=== PATIENT | female | born 1995 | race Native Hawaiian/Other Pacific Islander ===

== ENCOUNTER → 2022-12-14 11:32 | Outpatient (CLI) | payer OTHER, SELFPAY ==
[2022-12-14 14:31] LABS: Urine N gonorrhoeae NOT DETECTED
[2022-12-14 14:36] LABS: Urine Chlamydia NOT DETECTED
[2022-12-15 13:42] LABS: HSV 2 IGG AB < 0.91 index (0.00-0.90); HSV1IGG < 0.91 index (0.00-0.90)
[2022-12-15 16:18] LABS: Hepatitis B Surface Antigen NEGATIVE s/c (NEGATIVE)
[2022-12-15 16:33] LABS: HIV 1 & 2 Ab/Ag 4th Gen Combo NEGATIVE (NEGATIVE); Hep C Virus Ab w/Reflex Quant NEGATIVE s/c (NEGATIVE)
[2022-12-16 08:44] LABS: RPR Screen Non Reactive (Non Reactive)
== END ==
PROVIDERS: PCP Family Medicine; Referring Provider Nurse Practitioner Family; Visit Provider Nurse Practitioner Family
DX: Z11.3 Encounter for screening for infections with a predominantly sexual mode of transmission (principal)
CPT/HCPCS: 36415; 86592; 86695; 86696; 86803; 87210; 87340; 87389; 87491; 87591

== ENCOUNTER → 2023-02-20 07:47 | Outpatient (CLI) | payer OTHER, SELFPAY | PROVIDERS: PCP Family Medicine; Visit Provider Nurse Practitioner Family | DX: R31.9 Hematuria, unspecified (principal); N89.8 Other specified noninflammatory disorders of vagina | CPT/HCPCS: 87077; 87086; 87186; 87210 ==

== ENCOUNTER → 2023-02-20 08:11 | Outpatient (CLI) | payer OTHER, SELFPAY ==
[2023-02-20 08:22] LABS: Pregnancy Test Urine Negative (Negative)
[2023-02-20 16:57] LABS: HIV 1 & 2 Ab/Ag 4th Gen Combo NEGATIVE (NEGATIVE); Hep C Virus Ab w/Reflex Quant NEGATIVE s/c (NEGATIVE)
[2023-02-21 02:57] LABS: HSV 2 IGG AB < 0.91 index (0.00-0.90); HSV1IGG < 0.91 index (0.00-0.90)
[2023-02-21 08:54] LABS: RPR Screen Non Reactive (Non Reactive)
== END ==
PROVIDERS: PCP Family Medicine; Referring Provider Nurse Practitioner Family; Visit Provider Nurse Practitioner Family
DX: N89.8 Other specified noninflammatory disorders of vagina (principal); R31.9 Hematuria, unspecified; Z72.51 High risk heterosexual behavior
CPT/HCPCS: 36415; 81025; 86592; 86695; 86696; 86803; 87086; 87210; 87389

== ENCOUNTER 2023-03-23 18:25 | Emergency (ER) | payer OTHER, SELFPAY ==
[2023-03-23 18:37] VITALS: BP 141/85; PULSE 75; RESP 18; TEMP 36.6; O2SAT 99; BMI 30.2
--- NOTE | 2023-03-23 18:47 | ED_ITS ---
HPI - Neck Pain/Injury General Chief Complaint: Neck Pain/Injury Stated Complaint: Thinks blood clot near jaw Time Seen by Provider: 03/23/23 18:32 Mode of arrival: Ambulatory History of Present Illness HPI Narrative: 27-year-old female with history of non-Hodgkin's lymphoma and prior upper extremity and internal jugular DVTs presents with a chief complaint of a few days of perceived swelling under the angle of her left lower jaw for the past few days. She denies any fever or chills. She has no chest pain or shortness of breath. She denies any difficulty swallowing. She is had no upper extremity pain, swelling or redness. She is no facial swelling, no dental pain, no fever or chills Related Data Home Medications Medication Instructions Recorded Confirmed ascorbic acid (vitamin C) PO 03/16/23 03/16/23 ashwagandha extract PO 03/16/23 03/16/23 cholecalciferol (vitamin D3) PO 03/16/23 03/16/23 melatonin PO 03/16/23 03/16/23 multivitamin with iron PO 03/16/23 03/16/23 Previous Rx's Medication Instructions Recorded lorazepam 0.5 mg tablet 0.25 - 0.5 mg PO BID PRN anxiety 03/16/23 #30 tabs Allergies Allergy/AdvReac Type Severity Reaction Status Date / Time amoxicillin Allergy Mild Hives Verified 03/16/23 08:39 vancomycin Allergy Mild Nausea Verified 03/16/23 08:39 Review of Systems Review of Systems Narrative: GENERAL: Denies chills, fatigue, malaise, fever, sweats. HEENT: See HPI RESPIRATORY: Denies dyspnea, cough, wheezing, hemoptysis, sputum. CARDIOVASCULAR: Denies chest pain, palpitations, orthopnea, edema, GASTROINTESTINAL: Denies nausea, vomiting, abdominal pain, diarrhea, constipatio n, melena. : Denies dysuria, frequency, incontinence, hematuria, urinary retention. MUSCULOSKELETAL: denies weakness, joint pain, or bony pain SKIN: Denies rash, skin lesions, or other NEUROLOGIC: Denies weakness, headache, numbness, change in speech, confusion, seizures, incoordination. PSYCHIATRIC: No concerning psychosocial issues. 12 point review of systems is negative except for those stated above Patient History Medical History DIANNE (generalized anxiety disorder) Non-Hodgkin lymphoma Social History Smoking Status: Never smoker Smoking Status: Never smoker alcohol intake frequency: a few times a week Substance Use Type: does not use Exam Narrative Exam Narrative: GENERAL: [27] year old patient appears stated age. Well-developed patient, in mild distress. HEAD: Atraumatic. Normocephalic. EYES: Pupils equal round and reactive. Extraocular motions intact. No scleral icterus. No injection or drainage. ENT: Nose without bleeding, purulent drainage. Throat without erythema, tonsillar hypertrophy or exudate. Airway patent. No intraoral swelling or abnormality, no obvious dental abscess, no palpable mass under angle of jaw, no tender lymphadenopathy NECK: Trachea midline. Non tender CARDIOVASCULAR: Regular rate and rhythm without murmurs, gallops, or rubs. RESPIRATORY: Clear to auscultation. Breath sounds equal bilaterally. No wheezes, rales, or rhonchi. GASTROINTESTINAL: Abdomen soft, non-tender, nondistended. EXTREMITIES: No edema or joint tenderness. BACK: Nontender without deformity or crepitance. No flank tenderness. NEURO: AOx3. SKIN: No rash or erythema of visible areas Initial Vital Signs Initial Vital Signs: Vital Signs Temperature 97.8 F 03/23/23 18:37 Pulse Rate 75 03/23/23 18:37 Respiratory Rate 18 03/23/23 18:37 Blood Pressure 141/85 H 03/23/23 18:37 Pulse Oximetry 99 03/23/23 18:37 Oxygen Delivery Method Room Air 03/23/23 18:37 Course Orders Ordered: ED Orders 03/23/23 18:48 US periph venous up extrem lt Stat Vital Signs Vital signs: Vital Signs - 8 hr 03/23/23 20:25 03/23/23 23:12 Pulse Rate 74 76 Respiratory Rate 16 Blood Pressure 124/84 100/59 L Pulse Oximetry 99 100 Oxygen Delivery Method Room Air MDM - Neck Pain/Injury MDM Narrative Medical decision making narrative: [27] year old patient presents with pain under left-sided jaw and concern for recurrence of clot Multiple etiologies for patient's symptoms considered including, but not limited to: [DVT versus sialadenitis versus dental infection versus lymphadenopathy versus other] Prior Charts reviewed in our EMR Primary Historian: patient Imaging reviewed: Upper extremity ultrasound negative, no clot Patient's history and physical exam are reassuring. Multiple diagnoses considered as noted above. No evidence of DVT, no obvious swelling or redness, imaging is reassuring. No obvious dental infection, no palpable lymphadenopathy. Possibly early sialadenitis. No indication for specific or immediate intervention currently, patient encouraged to follow with her primary care and return precautions include increasing pain, swelling, redness, difficulty swallowing or breathing or other concerning symptoms Findings and discharge diagnosis discussed with patient/family followed by verbalization of understanding Return precautions discussed with patient/family whom verbalize understanding of diagnosis and plan Discharge Plan Departure Patient Disposition: Home Clinical Impression: Mandible pain Activity Restrictions/Additional Instructions: *You have been diagnosed with [left lateral mandibular pain. As we discussed you have reassuring history and physical exam, the ultrasound shows no significant abnormality] *What to do: *Please continue to take your regular medications as directed. *Please follow up with your primary care provider in 2-3 days, call for an appointment. Let them know you were seen in the Emergency Department and that we ask that you be seen in follow up. We will electronically transmit a record of today's note if your PCP is in our system *Return to Emergency Department if you should have any new, worsening or concerning symptoms, such as [fever greater than 101 F, shaking chills, worsening pain, persistent vomiting or other bothersome symptoms] Prescriptions: No Action lorazepam 0.5 mg tablet 0.25 - 0.5 mg PO BID PRN (Reason: anxiety) Qty: 30 0RF melatonin PO ascorbic acid (vitamin C) PO cholecalciferol (vitamin D3) PO ashwagandha extract PO multivitamin with iron PO Referrals: Marco A Downs DO [Primary Care Provider] - Stand Alone Forms: Patient Portal/API
--- NOTE | 2023-03-23 18:48 | DI.US.S_ITS ---
PROCEDURE: US PERIPH VENOUS UP EXTREM LT INDICATIONS: LEFT NECK SWELLING TECHNIQUE: Real-time imaging, as well as color and pulse Doppler interrogation, was performed of the left upper extremity deep veins from the inferior neck to the antecubital fossa. COMPARISON: None. FINDINGS: The internal jugular vein, visualized portions of the subclavian vein, axillary, and brachial veins are free of intraluminal thrombus. Where physically possible, the veins are normally compressible. Color and pulse Doppler demonstrate normal intraluminal flow, with expected phasicity and pulsatility. Additional scanning of the cephalic and basilic veins of the superficial system demonstrates normal compressibility, without thrombus. IMPRESSION: No findings of upper extremity deep venous thrombosis can be seen. Dictated by: Salas Rodriguez M.D. on 03/23/2023 at 18:24 Approved by: Salas Rodriguez M.D. on 03/23/2023 at 18:24
[2023-03-23 20:25] VITALS: BP 124/84; PULSE 74; O2SAT 99
[2023-03-23 23:12] VITALS: BP 100/59; PULSE 76; RESP 16; O2SAT 100
== END 2023-03-23 23:45 | disposition home or self-care (01) ==
PROVIDERS: Emergency Provider Emergency Medicine; PCP Family Medicine
DX: R68.84 Jaw pain (principal)
CPT/HCPCS: 93971; 99281; 99283

== ENCOUNTER → 2023-08-17 16:53 | Outpatient (CLI) | payer OTHER, SELFPAY ==
--- NOTE | 2023-08-17 16:55 | DI.RAD.S_ITS ---
PROCEDURE: XR CHEST 2V INDICATIONS: cough TECHNIQUE: 2 views of the chest were acquired. COMPARISON: None. FINDINGS: Surgical changes and devices: Stent projecting over the right lung apex.. Lungs and pleura: Lungs are clear. No pleural effusions or pneumothorax. Mediastinum: Mediastinal contours are normal. Heart size is normal. Bones and chest wall: No suspicious bony abnormalities. Soft tissues appear unremarkable. IMPRESSION: No acute cardiopulmonary abnormality is seen. Dictated by: Tio Zhao M.D. on 08/18/2023 at 8:41 Approved by: Tio Zhao M.D. on 08/18/2023 at 8:42
[2023-08-17 17:44] LABS: Add Manual Diff / Slide Review NO; Basophils Absolute Auto 100 /uL (0-100); Basophils Percent Auto 1.2 % (0-2); Eosinophils Absolute Auto 300 /uL (0-450); Eosinophils Percent Auto 7.8 % (2-4); Hematocrit 36.3 % (36-46); Hemoglobin 12.5 g/dL (12.0-16.0); Lymphocytes Absolute Auto 700 /uL (1100-4500); Lymphocytes Percent Auto 15.9 % (25-40); Mean Corpuscular HGB Conc 34.3 % (30-36); Mean Corpuscular Hemoglobin 32.3 PG (26-34); Monocytes Absolute Auto 400 /uL (0-900); Monocytes Percent Auto 8.7 % (3-14); Neutrophils Absolute Auto 2800 /uL (1500-7000); Neutrophils Percent Auto 66.4 % (50-75); Platelet Count 279 X10^3/uL (150-400); Red Blood Cell Count 3.86 X10^6/uL (4.0-5.2); Red Cell Distribution Width 12.4 % (11.6-14.8); White Blood Cell Count 4.2 X10^3/uL (4.5-11.0)
[2023-08-17 19:01] LABS: Hepatitis B Surface Antigen NEGATIVE s/c (NEGATIVE)
[2023-08-17 19:13] LABS: Urine Chlamydia NOT DETECTED; Urine N gonorrhoeae NOT DETECTED
== END ==
LOC: LAB 16:54
PROVIDERS: PCP Family Medicine; Referring Provider Nurse Practitioner Family; Visit Provider Nurse Practitioner Family
DX: Z11.3 Encounter for screening for infections with a predominantly sexual mode of transmission (principal); R05.9 Cough, unspecified; Z72.51 High risk heterosexual behavior
CPT/HCPCS: 36415; 71046; 85025; 87340; 87491; 87591

== ENCOUNTER 2023-09-18 07:01 | Emergency (ER) | payer OTHER, SELFPAY ==
[2023-09-18 07:12] VITALS: BP 133/75; PULSE 61; RESP 18; TEMP 36.6; O2SAT 100; BMI 26.6
--- NOTE | 2023-09-18 07:42 | ED_ITS ---
HPI - Abdominal Pain General Chief Complaint: Abdominal Pain Stated Complaint: bloating, constipation pain Time Seen by Provider: 09/18/23 07:29 Source: patient Mode of arrival: Ambulatory History of Present Illness HPI narrative: This is a 28-year-old female with history of B-cell lymphoma, partial remission with prior chemo and radiation to the chest, prior DVTs no longer anticoagulated. Patient presents with complaint of feeling bloated and having abdominal pain intermittently over the past several weeks. Patient states she has had pain only 2 major episodes that have resolved. She states she feels bloated and full. She thought she might be constipated she has had bowel movements but small amounts when it happens, she is tried senna and another [id number] stool softener and has started to have some diarrhea. She states stools have been on and off diarrhea with mucousy threads since chemotherapy. She denies any recent fevers. No chest pain or shortness of breath. No nausea or vomiting. She states no issues with dysuria urgency or frequency thought her urine looked darker. She does not get regular periods she does have IUD in place. No swelling in extremities. Patient states she has had a port and had stents for DVTs and clean out in her right neck. Patient states no tobacco, occasional alcohol, no recreational drugs. She is still following with Oncology regularly, has been told she is partially in remission and has a PET scan ordered for the end of the month. Related Data Home Medications Medication Instructions Recorded Confirmed ascorbic acid (vitamin C) PO 03/16/23 08/17/23 ashwagandha extract PO 03/16/23 08/17/23 cholecalciferol (vitamin D3) PO 03/16/23 08/17/23 melatonin PO 03/16/23 08/17/23 multivitamin with iron PO 03/16/23 08/17/23 biotin 10,000 mcg chewable tablet mcg PO 04/17/23 08/17/23 (Hair, Skin and Nails (biotin)) Previous Rx's Medication Instructions Recorded lorazepam 0.5 mg tablet 0.25 - 0.5 mg (0.5 - 1 x 0.5 mg) 03/16/23 PO BID PRN anxiety #30 tabs Allergies Allergy/AdvReac Type Severity Reaction Status Date / Time amoxicillin Allergy Mild Hives Verified 09/18/23 07:17 vancomycin Allergy Mild Nausea Verified 09/18/23 07:17 Review of Systems Review of Systems ROS Unobtainable: All systems reviewed & are unremarkable except as noted in HPI and below Patient History Medical History Depression (~2016) Anxiety (~2016) Ovarian cyst (~2021) Chlamydia (~2013) DIANNE (generalized anxiety disorder) Non-Hodgkin lymphoma (~2021) Surgical History Anesthesia History of removal of Port-a-Cath History of heart artery stent History of bone marrow biopsy History of breast surgery Family History Mother Hypertension Grandmother Alzheimer's disease Social History Smoking Status: Never smoker Smoking Status: Never smoker alcohol intake frequency: a few times a week Substance Use Type: does not use Exam Narrative Exam Narrative: GENERAL: Alert and oriented x three, well-appearing female in mild distress. HEENT: Head normocephalic, atraumatic, EOMI, pupils reactive, face symmetric, moist mucous membranes NECK: Supple, full range of motion CARDIOVASCULAR: Regular rate and rhythm without murmurs, rubs or gallops. RESPIRATORY: Breath sounds equal bilaterally, no wheezes rales or rhonchi. ABDOMEN: Soft, nontender. Slightly distended. Normoactive bowel sounds all 4 quadrants. No guarding or rebound, rigidity, no mass : No CVA tenderness EXTREMITIES: Normal range of motion, no clubbing or edema. Neurovascularly intact NEUROLOGICAL: Cranial nerves II through XII grossly intact. Moving all extremities SKIN: Warm, dry, no petechiae, no rashes or lesions. Initial Vital Signs Initial Vital Signs: Vital Signs Temperature 97.8 F 09/18/23 07:12 Pulse Rate 61 09/18/23 07:12 Respiratory Rate 18 09/18/23 07:12 Blood Pressure 133/75 09/18/23 07:12 Pulse Oximetry 100 09/18/23 07:12 Oxygen Delivery Method Room Air 09/18/23 07:12 Course Orders Ordered: ED Orders 09/18/23 07:54 CT abdomen pelvis w con Stat 09/18/23 08:05 Complete Blood Count AUTO DIFF Stat Comprehensive Metabolic Panel Stat Lipase Stat Discontinued Medications Sodium Chloride (Normal Saline 0.9%) 1,000 mls @ 1,000 mls/hr IV BOLUS ONE Stop: 09/18/23 08:53 Last Admin: 09/18/23 08:21 Dose: 1,000 mls/hr Documented By: INOCENTE Vital Signs Vital signs: Vital Signs - 8 hr 09/18/23 07:12 09/18/23 09:00 Temperature 97.8 F Pulse Rate 61 77 Respiratory Rate 18 20 Blood Pressure 133/75 131/71 Pulse Oximetry 100 100 Oxygen Delivery Method Room Air Room Air MDM - Abdominal Pain Lab Data 09/18/23 08:05 09/18/23 08:05 Labs: Lab Results 09/18/23 Range/Units 08:05 WBC 2.9 L (4.5-11.0) X10^3/uL RBC 3.66 L (4.0-5.2) X10^6/uL Hgb 12.2 (12.0-16.0) g/dL Hct 35.0 L (36-46) % MCV 95.4 (80-100) fL MCH 33.3 (26-34) PG MCHC 34.9 (30-36) % RDW 13.1 (11.6-14.8) % Plt Count 232 (150-400) X10^3/uL Neut % (Auto) 60.0 (50-75) % Lymph % (Auto) 18.4 L (25-40) % Emmet % (Auto) 12.2 (3-14) % Eos % (Auto) 7.5 H (2-4) % Baso % (Auto) 1.9 (0-2) % Neut # (Auto) 1800 (3772-4337) /uL Lymph # (Auto) 500 L (4840-1078) /uL Emmet # (Auto) 400 (0-900) /uL Eos # (Auto) 200 (0-450) /uL Baso # (Auto) 100 (0-100) /uL Sodium 139 (137-145) mmol/L Potassium 4.1 (3.4-5.1) mmol/L Chloride 107 (98-107) mmol/L Carbon Dioxide 29 (22-32) mmol/L BUN 17 (7-17) mg/dL Creatinine 0.69 (0.52-1.04) mg/dL Estimated GFR > 60 (>60) mL/min BUN/Creatinine Ratio 24.6 H (6-22) Glucose 89 (70-100) mg/dL Calcium 9.2 (8.4-10.2) mg/dL Total Bilirubin 1.0 (0.2-1.3) mg/dL AST 24 (14-36) IU/L ALT 16 (<35) IU/L Alkaline Phosphatase 52 (38-126) U/L Total Protein 7.9 (6.3-8.2) g/dL Albumin 4.6 (3.5-5.0) g/dL Globulin 3.3 (1.7-4.1) g/dL Albumin/Globulin Ratio 1.4 (1.0-2.8) Lipase 82 (23-300) U/L Point of care testing: Point of Care Testing Test Results Negative Urine Dip Bedside Urine Glucose Negative Bedside Urine Bilirubin - Negative Bedside Urine Ketone - Negative Urine Specific Marshall 1.015 Bedside Urine Occult Blood - Negative Bedside Urine pH 6.0 Bedside Urine Protein - Negative Bedside Urine Urobilinogen - Negative Bedside Urine Nitrite - Negative Bedside Urine Leukocytes - Negative Esterase Imaging Data CT scan - abdomen/pelvis: Radiologist's Impression: Close Abdomen/Pelvis CT (Signed) Remington Louise - 09/18/23 Chest X-Ray (Signed) Tio Zhao - 08/17/23 Peripheral Vascular Ultrasound (Signed) Salas Rodriguez - 03/23/23 [place] [address] CT Scan Report Signed Patient: Courtney Ugalde MR#: [id number] : 1995 Acct:[id number] Age/Sex: 28 / F Date of Service: 09/18/23 Loc: ED Accession Number: [id number] Procedure: CT abdomen pelvis w con Ordering Provider: Patricia Pires D.O. PROCEDURE: CT ABDOMEN PELVIS W CON INDICATIONS: bloating, abd pain intermittent, hx B cell lymph rad/chemo TECHNIQUE: After the administration of intravenous contrast, axial sections acquired from the lung bases to the pubic symphysis. Coronal and sagittal reformats were performed. For radiation dose reduction, the following was used: automated exposure control, adjustment of mA and/or kV according to patient size. COMPARISON: None. FINDINGS: Image quality: Diagnostic. Lower Chest: No significant findings. ABDOMEN: Liver: No solid mass. Gallbladder: No radiopaque gallstones or wall thickening. Biliary ducts: No biliary dilation. Pancreas: No ductal dilation. Spleen: Size is within normal limits. Adrenal Glands: No adrenal nodules. Kidneys and Ureters: No hydronephrosis. No solid mass. No complex renal cystic lesion which requires follow up. Stomach and Bowel: Normal colonic caliber, without significant wall thickening. Peritoneum: No abnormal intraperitoneal fluid. Physiologic fluid in the pelvis. No free air. Ventral Wall: No significant ventral hernia. Abdominal Nodes: No retroperitoneal or mesenteric adenopathy by size criteria. Vessels: Aorta and inferior vena cava are normal in size. PELVIS: Pelvic Organs: IUD. Bladder: No bladder wall thickening, accounting for underdistention. Pelvic Nodes: No enlarged lymph nodes. Miscellaneous: No inguinal hernias are seen. Bones: No aggressive osseous abnormality. Disc bulges at L4-L5 and L5-S1. IMPRESSION: 1. No acute abdominal process. 2. No lymphadenopathy noted in the abdomen and pelvis. 3. IUD. Dictated by: Remington Louise M.D. on 09/18/2023 at 8:24 Approved by: Remington Louise M.D. on 09/18/2023 at 8:26 MDM Narrative Medical decision making narrative: 28-year-old female with complaint of intermittent abdominal pain, bloating and concern for intra-abdominal process. Patient has a history of B-cell lymphoma, had radiation to her chest chemotherapy, has had prior DVTs remotely. Patient states pains resolved today. She has not really had any urinary symptoms. Does not get periods regularly does have an IUD in place. Urine is negative for , dip is negative for infection. White count is 2.9 was 4.2 in August, hemoglobin is 12.2 appears stable to prior in August, platelets are 232. Electrolytes appropriate sodium of 139 potassium 4 1 chloride 107 CO2 of 29 BUN 17 creatinine 0.69 with negative LFTs and protein and globulin. Discussed with patient risks versus benefits of CT imaging. Patient does have risk factors with her prior history after discussion patient elects for CT abdomen pelvis-no masses, normal colon caliber without any wall thickening, no adenopathy, IUD present. Patient to follow up with Oncology, she has follow-up later this month. Reviewed findings from today, return precautions. Patient has follow up with Oncology later this month asked her to share her lab findings with her white count as well. Discharge Plan Departure Patient Disposition: Home Clinical Impression: Bloating Activity Restrictions/Additional Instructions: Follow-up with your oncology team for recheck. Your white blood cell count today is 2.9. Your CT showed your IUD but no other changes. If you feel constipated and not having bowel movements you can continue with Dulcolax and/or senna. Make sure you are drinking plenty of fluids while taking these medications. It is sometimes helpful to eat high-fiber foods as well. Please return for fevers, new abdominal pain, persistent vomiting, black or bloody stools, new urinary symptoms, if you are not having bowel movements and not passing gas or flatus or other new or concerning changes. Prescriptions: No Action Hair, Skin and Nails (biotin) 10,000 mcg tablet,chewable PO lorazepam 0.5 mg tablet 0.25 - 0.5 mg PO BID PRN (Reason: anxiety) Qty: 30 0RF melatonin PO ascorbic acid (vitamin C) PO cholecalciferol (vitamin D3) PO ashwagandha extract PO multivitamin with iron PO Referrals: Marco A Downs DO [Primary Care Provider] - Stand Alone Forms: Patient Portal/API
--- NOTE | 2023-09-18 07:54 | DI.CT.S_ITS ---
PROCEDURE: CT ABDOMEN PELVIS W CON INDICATIONS: bloating, abd pain intermittent, hx B cell lymph rad/chemo TECHNIQUE: After the administration of intravenous contrast, axial sections acquired from the lung bases to the pubic symphysis. Coronal and sagittal reformats were performed. For radiation dose reduction, the following was used: automated exposure control, adjustment of mA and/or kV according to patient size. COMPARISON: None. FINDINGS: Image quality: Diagnostic. Lower Chest: No significant findings. ABDOMEN: Liver: No solid mass. Gallbladder: No radiopaque gallstones or wall thickening. Biliary ducts: No biliary dilation. Pancreas: No ductal dilation. Spleen: Size is within normal limits. Adrenal Glands: No adrenal nodules. Kidneys and Ureters: No hydronephrosis. No solid mass. No complex renal cystic lesion which requires follow up. Stomach and Bowel: Normal colonic caliber, without significant wall thickening. Peritoneum: No abnormal intraperitoneal fluid. Physiologic fluid in the pelvis. No free air. Ventral Wall: No significant ventral hernia. Abdominal Nodes: No retroperitoneal or mesenteric adenopathy by size criteria. Vessels: Aorta and inferior vena cava are normal in size. PELVIS: Pelvic Organs: IUD. Bladder: No bladder wall thickening, accounting for underdistention. Pelvic Nodes: No enlarged lymph nodes. Miscellaneous: No inguinal hernias are seen. Bones: No aggressive osseous abnormality. Disc bulges at L4-L5 and L5-S1. IMPRESSION: 1. No acute abdominal process. 2. No lymphadenopathy noted in the abdomen and pelvis. 3. IUD. Dictated by: Remington Louise M.D. on 09/18/2023 at 8:24 Approved by: Remington Louise M.D. on 09/18/2023 at 8:26
[2023-09-18 08:16] LABS: Add Manual Diff / Slide Review NO; Basophils Absolute Auto 100 /uL (0-100); Basophils Percent Auto 1.9 % (0-2); Eosinophils Absolute Auto 200 /uL (0-450); Eosinophils Percent Auto 7.5 % (2-4); Hemoglobin 12.2 g/dL (12.0-16.0); Lymphocytes Absolute Auto 500 /uL (1100-4500); Lymphocytes Percent Auto 18.4 % (25-40); Mean Corpuscular HGB Conc 34.9 % (30-36); Mean Corpuscular Hemoglobin 33.3 PG (26-34); Mean Corpuscular Volume 95.4 fL (80-100); Monocytes Absolute Auto 400 /uL (0-900); Monocytes Percent Auto 12.2 % (3-14); Neutrophils Absolute Auto 1800 /uL (1500-7000); Platelet Count 232 X10^3/uL (150-400); Red Blood Cell Count 3.66 X10^6/uL (4.0-5.2); Red Cell Distribution Width 13.1 % (11.6-14.8); White Blood Cell Count 2.9 X10^3/uL (4.5-11.0)
[2023-09-18] MEDS: SODIUM CHLORIDE 0.9% 1,000 ML 1000 ML IV (08:21)
[2023-09-18 08:24] LABS: Alanine Aminotransferase 16 IU/L (<35); Albumin 4.6 g/dL (3.5-5.0); Albumin Globulin Ratio 1.4 (1.0-2.8); Alkaline Phosphatase 52 U/L (38-126); Aspartate Aminotransferase 24 IU/L (14-36); BUN Creatinine Ratio 24.6 (6-22); Blood Urea Nitrogen 17 mg/dL (7-17); Calcium 9.2 mg/dL (8.4-10.2); Carbon Dioxide 29 mmol/L (22-32); Chloride 107 mmol/L (98-107); Estimated Glomerular Filt Rate > 60 mL/min (>60); Globulin 3.3 g/dL (1.7-4.1); Glucose 89 mg/dL (70-100); HEMOLYSIS < 15 (0-50); Lipase 82 U/L (23-300); Potassium 4.1 mmol/L (3.4-5.1); Sodium 139 mmol/L (137-145); Total Protein 7.9 g/dL (6.3-8.2)
[2023-09-18 09:00] VITALS: BP 131/71; PULSE 77; RESP 20; O2SAT 100
== END 2023-09-18 09:01 | disposition home or self-care (01) ==
PROVIDERS: Emergency Provider Emergency Medicine; PCP Family Medicine
DX: R14.0 Abdominal distension (gaseous) (principal); R10.9 Unspecified abdominal pain; C85.90 Non-Hodgkin lymphoma, unspecified, unspecified site; R79.89 Other specified abnormal findings of blood chemistry
CPT/HCPCS: 36415; 74177; 80053; 81003; 81025; 83690; 85025; 99284; Q9967

== ENCOUNTER → 2023-10-25 09:43 | Outpatient (CLI) | payer OTHER, SELFPAY ==
--- NOTE | 2023-10-25 09:43 | DI.US.S_ITS ---
PROCEDURE: US PELVIC COMPLETE INDICATIONS: R/O pelvic inflammatory disease. TECHNIQUE: Real-time scanning was performed of the pelvic organs, with image documentation. Additional endovaginal scanning was necessary due to incomplete visualization of the adnexal and endometrial structures by transabdominal scanning. COMPARISON: [facility], CT, CT ABDOMEN PELVIS W CON, 09/18/2023, 7:06. FINDINGS: Uterus: Uterus is anteverted and normal in size at 6.4 x 4.4 x 2.4 cm. The myometrium is homogeneous. The endometrium measures 4 mm combined thickness. There is an IUD in expected position. Ovaries: The right ovary measures 3.2 x 3.3 x 2.0 cm, with a calculated ovarian volume of 11.0 cc. The left ovary is not visualized. Less than 12 follicles can be seen in the right ovary. A 1.8 cm dominant follicle is seen in the right ovary. No adnexal masses are seen. No dilated fallopian tubes. Other: No pathologic free abdominal or pelvic fluid. IMPRESSION: 1. IUD in uterus. 2. Right ovary is grossly normal. Left ovary is not identified. 3. No dilated fallopian tubes or free fluid in pelvis. We strive to produce accurate, complete, and clear reports of imaging services. To assist us in improving patient care, this report was composed using standard report templates and voice recognition software. Therefore, it may contain abnormal punctuation, insertions and/or omissions. Occasional wrong-word or sound-alike substitutions may occur. Though we review the report and make efforts to correct it, we do recommend that the report be read carefully in proper context to recognize any text inaccuracies. Dictated by: Chaparrita Bailey M.D. on 10/25/2023 at 12:09 Approved by: Chaparrita Bailey M.D. on 10/25/2023 at 12:12
== END ==
LOC: US 09:43
PROVIDERS: PCP Family Medicine; Referring Provider Specialist; Visit Provider Specialist
DX: C85.92 Non-Hodgkin lymphoma, unspecified, intrathoracic lymph nodes (principal); Z97.5 Presence of (intrauterine) contraceptive device
CPT/HCPCS: 76830; 76856

== ENCOUNTER → 2024-01-09 22:56 | Outpatient (ROUT) | payer OTHER, SELFPAY ==
[2024-01-10 00:27] LABS: Urine N gonorrhoeae NOT DETECTED
[2024-01-10 00:47] LABS: Urine Chlamydia NOT DETECTED
== END ==
PROVIDERS: PCP Family Medicine; Visit Provider Physician Assistant
DX: Z20.2 Contact with and (suspected) exposure to infections with a predominantly sexual mode of transmission (principal)
CPT/HCPCS: 87491; 87591

== ENCOUNTER → 2024-03-11 11:56 | Outpatient (CLI) | payer OTHER, SELFPAY ==
--- NOTE | 2024-03-11 11:58 | DI.RAD.S_ITS ---
PROCEDURE: XR ANKLE RT MIN 3V INDICATIONS: Right ankle pain TECHNIQUE: 3 views of the ankle were acquired. COMPARISON: None. FINDINGS: Bones: No fractures or dislocations. Ankle mortise is normally aligned. No suspicious bony lesions. Soft tissues: No tibiotalar joint effusion. Soft tissue swelling overlying the lateral malleolus. Achilles tendon appears normal. IMPRESSION: Soft tissue swelling overlying the lateral malleolus without acute osseous abnormality. Dictated by: Minh Johnson M.D. on 03/12/2024 at 10:08 Approved by: Minh Johnson M.D. on 03/12/2024 at 10:09
== END ==
PROVIDERS: PCP Family Medicine; Referring Provider Nurse Practitioner Family; Visit Provider Nurse Practitioner Family
DX: S96.911A Strain of unspecified muscle and tendon at ankle and foot level, right foot, initial encounter (principal); R60.0 Localized edema; X58.XXXA Exposure to other specified factors, initial encounter
CPT/HCPCS: 73610

== ENCOUNTER → 2024-04-24 10:13 | Outpatient (CLI) | payer OTHER, SELFPAY | PROVIDERS: PCP Family Medicine; Visit Provider Obstetrics & Gynecology | DX: Z20.2 Contact with and (suspected) exposure to infections with a predominantly sexual mode of transmission (principal) | CPT/HCPCS: 87491; 87563; 87591 ==

== ENCOUNTER → 2024-05-13 07:48 | Outpatient (CLI) | payer OTHER, SELFPAY ==
[2024-05-13 10:06] LABS: Prolactin 38.6 ng/mL (3.0-18.6)
[2024-05-13 10:07] LABS: Follicle Stimulating Hormone 5.86 mIU/mL; Free T4, Direct Thyroxine 0.98 ng/dL (0.78-2.19); Luteinizing Hormone 5.18 mIU/mL; Progesterone, Total 1.62 ng/mL
[2024-05-13 10:21] LABS: Thyroid Stimulating Hormone 3.73 uIU/mL (0.47-4.68)
[2024-05-13 10:22] LABS: Estradiol, Total 26.7 pg/mL
== END ==
LOC: LAB 07:49
PROVIDERS: Registered Nurse; PCP Family Medicine
DX: C83.32 Diffuse large B-cell lymphoma, intrathoracic lymph nodes (principal); Z31.9 Encounter for procreative management, unspecified
CPT/HCPCS: 36415; 82397; 82670; 83001; 83002; 84144; 84146; 84439; 84443

== ENCOUNTER → 2024-05-17 08:18 | Outpatient (CLI) | payer OTHER, SELFPAY ==
[2024-05-17 10:31] LABS: Urine N gonorrhoeae NOT DETECTED
[2024-05-17 10:33] LABS: Urine Chlamydia NOT DETECTED
== END ==
PROVIDERS: PCP Family Medicine; Referring Provider Nurse Practitioner Family; Visit Provider Nurse Practitioner Family
DX: A64 Unspecified sexually transmitted disease (principal); N94.9 Unspecified condition associated with female genital organs and menstrual cycle
CPT/HCPCS: 87491; 87591

== ENCOUNTER → 2024-05-17 13:52 | Outpatient (CLI) | payer OTHER, SELFPAY ==
[2024-05-17 22:15] LABS: Hepatitis B Surface Antigen NEGATIVE s/c (NEGATIVE)
[2024-05-17 23:13] LABS: HIV 1 & 2 Ab/Ag 4th Gen Combo NEGATIVE (NEGATIVE); Hep C Virus Ab w/Reflex Quant NEGATIVE s/c (NEGATIVE)
[2024-05-21 05:36] LABS: RPR Screen Non Reactive (Non Reactive)
== END ==
PROVIDERS: PCP Family Medicine; Referring Provider Nurse Practitioner Family; Visit Provider Nurse Practitioner Family
DX: N94.9 Unspecified condition associated with female genital organs and menstrual cycle (principal); A64 Unspecified sexually transmitted disease
CPT/HCPCS: 36415; 86592; 86695; 86696; 86803; 87340; 87389; 87491; 87591

== ENCOUNTER → 2024-06-04 15:53 | Outpatient (CLI) | payer OTHER, SELFPAY ==
--- NOTE | 2024-06-04 15:53 | DI.MG.S_ITS ---
BILATERAL DIGITAL SCREENING MAMMOGRAM 3D/2D WITH CAD: 06/04/2024 CLINICAL: Baseline exam. Routine screening. No prior exams were available for comparison. The breasts are heterogeneously dense, which may obscure small masses (category c / 51-75% glandular tissue). Current study was also evaluated with a Computer Aided Detection (CAD) system. No significant masses, calcifications, or other findings are seen in either breast. IMPRESSION: NEGATIVE There is no mammographic evidence of malignancy. A 1 year screening mammogram is recommended. Based on the Tyrer Cuzick model (a risk assessment model) the patient's lifetime risk is 16.8% and her 10 year risk is 0.5%. According to the ACR, ACS, and NCCN guidelines, an annual breast MRI exam along with mammogram is recommended if the patient's lifetime risk is 20% or greater. This exam was interpreted at Station ID: [id number]. NOTE: For mammograms, a report in lay terms will be sent to the patient. Approximately 15% of breast malignancies will not be visualized mammographically. In the management of a palpable breast mass, a negative mammogram must not discourage biopsy of a clinically suspicious lesion. Electronically Signed By: Analia Austin M.D., Ph.D. eb/penhemanth:06/05/2024 17:52:30 copy to: ADAM CHRISTENSEN copy to: John Turk MD, [facility] letter sent: Normal Exam ACR BI-RADS Category 1: Negative
== END ==
PROVIDERS: PCP Family Medicine; Referring Provider Obstetrics & Gynecology; Visit Provider Obstetrics & Gynecology
DX: Z12.31 Encounter for screening mammogram for malignant neoplasm of breast (principal); R92.333 Mammographic heterogeneous density, bilateral breasts
CPT/HCPCS: 77063; 77067

== ENCOUNTER → 2024-06-16 11:20 | Outpatient (CLI) | payer OTHER, SELFPAY ==
[2024-06-16 12:58] LABS: Urine N gonorrhoeae NOT DETECTED
[2024-06-16 12:59] LABS: Urine Chlamydia NOT DETECTED
== END ==
PROVIDERS: PCP Family Medicine; Visit Provider Registered Nurse
DX: Z11.3 Encounter for screening for infections with a predominantly sexual mode of transmission (principal); N89.8 Other specified noninflammatory disorders of vagina
CPT/HCPCS: 87086; 87210; 87491; 87591

== ENCOUNTER 2024-07-16 13:14 | Emergency (ER) | payer OTHER, SELFPAY ==
[2024-07-16 13:44] VITALS: BP 121/72; PULSE 72; RESP 18; TEMP 37.1; O2SAT 100; BMI 25.2
--- NOTE | 2024-07-16 14:29 | PC.NURSE ---
Patient reports starting monday patient has had significant n/v/d. Vomited twice on monday non since. Upwards of 20 episodes of diarrhea since last night. Denies urinary symptoms. Took pepto on monday reports dark colored diarrhea last night, now greenish yellow. Denies dizziness, shortness of breath. Patient has no history of gastric ulcer, use of blood thinners, no blood in emesis on monday.
[2024-07-16 14:38] LABS: Bacteria Urine None Seen; Culture Indicated Urine Cult Not Indicated; Mucus Urine 1+ (Negative); RBC Urine 1-5/HPF (0-5/HPF); Squamous Epithelial Cell Urine 0-1 /HPF (0-5/HPF); Urine Volume 10mL (spun); WBC Urine 1-5/HPF (0-5/HPF)
--- NOTE | 2024-07-16 15:26 | ED_ITS ---
HPI - Nausea/Vomiting/Diarrhea <Humble Castro PA-C - Last Filed: 07/16/24 16:21> General Chief complaint: Nausea/Vomiting/Diarrhea Stated complaint: poss Norovirus, dehydrated Time Seen by Provider: 07/16/24 14:11 Source: patient Mode of arrival: Ambulatory History of Present Illness HPI Narrative: 29-year-old female with past medical history non-Hodgkin's lymphoma in remission presents to the ED with 3 days of nausea, vomiting, diarrhea, abdominal cramping. Patient states that she was in [place], symptoms developed on her way back. Patient's symptoms started with fever, chills, vomiting. Patient states that she vomited only 2 times, and that her fever subsided after the 1st day. However, patient has had multiple episodes of diarrhea daily. Patient states that any foods that she eats causes her to have multiple bowel movements. Patient is able to keep down fluids orally. Denies chest pain, shortness of breath, dysuria, lightheadedness, dizziness, syncope. Related Data Home Medications Medication Instructions Recorded Confirmed ascorbic acid (vitamin C) PO 03/16/23 07/07/24 ashwagandha extract PO 03/16/23 07/07/24 cholecalciferol (vitamin D3) PO 03/16/23 07/07/24 melatonin PO 03/16/23 07/07/24 multivitamin with iron PO 03/16/23 07/07/24 biotin 10,000 mcg chewable tablet mcg PO 04/17/23 07/07/24 (Hair, Skin and Nails (biotin)) levonorgestrel 21 mcg/24 hr (up to intrauterine 04/24/24 07/07/24 8 years) 52 mg intrauterine device (Mirena) Previous Rx's Medication Instructions Recorded lorazepam 0.5 mg tablet 0.25 - 0.5 mg (0.5 - 1 x 0.5 mg) 03/15/24 PO BID PRN anxiety #30 tabs ondansetron 4 mg disintegrating 4 mg PO DAILY 30 days #20 tabs 06/05/24 tablet hyoscyamine sulfate 0.125 mg 0.25 mg (2 x 0.125 mg) PO TID-QID 07/16/24 tablet (Oscimin) PRN dyspepsia 5 days #20 tabs Allergies Allergy/AdvReac Type Severity Reaction Status Date / Time amoxicillin Allergy Mild Hives Verified 07/07/24 13:17 vancomycin Allergy Mild Nausea Verified 07/07/24 13:17 Review of Systems <Humble Castro PA-C - Last Filed: 07/16/24 16:21> Constitutional Constitutional: Reports chills, Denies fatigue, Reports fever(s), Denies frequent falls, Denies lethargy and Denies weakness Eyes Eyes: Denies change in vision, Denies eye discharge, Denies irritation and Denies loss of vision ENT Ears, Nose, Mouth, and Throat: Denies change in voice, Denies dizziness, Denies neck pain, Denies sore throat and Denies throat swelling Cardiovascular Cardiovascular: Denies chest pain, Denies irregular heart rhythm, Denies lightheadedness, Denies palpitations, Denies dyspnea, Denies dyspnea on exertion and Denies orthopnea Respiratory Respiratory: Denies cough, Denies dyspnea, Denies dyspnea on exertion and Denies wheezing Gastrointestinal Gastrointestinal: Denies abdominal pain, Denies change in bowel habits, Reports cramping, Reports diarrhea, Reports nausea and Reports vomiting Musculoskeletal Musculoskeletal: Denies neck pain and Denies numbness Integumentary/Breasts Skin/Breast: Denies pruritus, Denies erythema, Denies rash and Denies wounds Neurologic Neurologic: Denies behavioral changes, Denies confusion, Denies dizziness, Denie s frequent falls, Denies loss of vision, Denies numbness and Denies weakness Psychiatric Psychiatric: Denies anxiety, Denies behavioral changes, Denies confusion, Denies depression, Denies homicidal ideation and Denies suicidal ideation Endocrine Endocrine: Denies fatigue, Denies flushing and Denies palpitations Hematologic/Lymphatic Hematologic/Lymphatic: Denies easy bruising Allergic/Immunologic Allergic/Immunologic: Denies urticaria, Denies throat swelling and Denies wheezing Patient History <Humble Castro PA-C - Last Filed: 07/16/24 16:21> Medical History Personal history of antineoplastic chemotherapy Depression (~2016) Anxiety (~2016) Ovarian cyst (~2021) Chlamydia (~2013) DIANNE (generalized anxiety disorder) Non-Hodgkin lymphoma (~2021) Surgical History Anesthesia History of removal of Port-a-Cath History of heart artery stent History of bone marrow biopsy History of breast surgery Family History Mother Hypertension Grandmother Alzheimer's disease Social History Smoking Status: Never smoker Smoking Status: Never smoker alcohol intake frequency: a few times a week Exam <Humble Castro PA-C - Last Filed: 07/16/24 16:21> Narrative Exam Narrative: Const General:?cooperative, healthy appearing and comfortable [facility] Head:?normal to inspection Ears:?hearing grossly normal bilaterally Nose:?external nose normal Face and sinus:?normal facial exam and sinuses nontender Mouth:?oral mucosae normal Throat:?posterior oropharynx normal Eyes General:?appearance normal, both eyes and all related structures Neck Neck:?normal visual inspection and no lymphadenopathy noted Resp Effort & Inspection:?normal respiratory effort Auscultation:?clear to auscultation bilaterally Cardio Rate:?regular rate Rhythm:?regular rhythm GI Abdomen is soft, nondistended, nontender to palpation. Neuro General:?patient alert, patient awake and patient oriented x3 Initial Vital Signs Initial Vital Signs: Vital Signs Temperature 98.7 F 07/16/24 13:44 Pulse Rate 72 07/16/24 13:44 Respiratory Rate 18 07/16/24 13:44 Blood Pressure 121/72 07/16/24 13:44 Pulse Oximetry 100 07/16/24 13:44 Oxygen Delivery Method Room Air 07/16/24 13:44 <Josue Lee MD - Last Filed: 07/19/24 08:26> Initial Vital Signs Initial Vital Signs: Vital Signs Temperature 98.7 F 07/16/24 13:44 Pulse Rate 72 07/16/24 13:44 Respiratory Rate 18 07/16/24 13:44 Blood Pressure 121/72 07/16/24 13:44 Pulse Oximetry 100 07/16/24 13:44 Oxygen Delivery Method Room Air 07/16/24 13:44 Course <Hmuble Castro PA-C - Last Filed: 07/16/24 16:21> Orders Ordered: Discontinued Medications Ondansetron HCl (Ondansetron 4 Mg/2 Ml Inj) 4 mg IV NOW PRN PRN Reason: Nausea And Vomiting Ondansetron HCl (Ondansetron 4 Mg Odt) 4 mg SL NOW PRN PRN Reason: Nausea And Vomiting Vital Signs Vital signs: Vital Signs - 8 hr 07/16/24 13:44 Temperature 98.7 F Pulse Rate 72 Respiratory Rate 18 Blood Pressure 121/72 Pulse Oximetry 100 Oxygen Delivery Method Room Air <Josue Lee MD - Last Filed: 07/19/24 08:26> Orders Ordered: Discontinued Medications Ondansetron HCl (Ondansetron 4 Mg/2 Ml Inj) 4 mg IV NOW PRN PRN Reason: Nausea And Vomiting Ondansetron HCl (Ondansetron 4 Mg Odt) 4 mg SL NOW PRN PRN Reason: Nausea And Vomiting Vital Signs Vital signs: Vital Signs - 8 hr 07/16/24 13:44 Temperature 98.7 F Pulse Rate 72 Respiratory Rate 18 Blood Pressure 121/72 Pulse Oximetry 100 Oxygen Delivery Method Room Air MDM - Nausea/Vomiting/Diarrhea <Humble Castro PA-C - Last Filed: 07/16/24 16:21> Lab Data Labs: Lab Results 07/16/24 Range/Units 14:10 Urine RBC 1-5/hpf (0-5/HPF) Urine WBC 1-5/hpf (0-5/HPF) Ur Squamous Epith Cells 0-1 /hpf (0-5/HPF) Urine Bacteria None seen (None) Urine Mucus 1+ H (Negative) Ur Culture Indicated? Cult not indicated Vol Urine Centrifuged 10ml (spun) Point of Care Testing Test Results Negative Urine Dip Bedside Urine Glucose Negative Bedside Urine Bilirubin - Negative Bedside Urine Ketone ++ 40 Urine Specific [place] 1.025 Bedside Urine Occult Blood + Bedside Urine pH 6.0 Bedside Urine Protein + 30 Bedside Urine Urobilinogen - Negative Bedside Urine Nitrite - Negative Bedside Urine Leukocytes +/- 15 Esterase MDM Narrative Medical decision making narrative: 29-year-old female with past medical history non-Hodgkin's lymphoma in remission presents to the ED with 3 days of nausea, vomiting, diarrhea, abdominal cramping. Patient's symptoms most consistent with gastroenteritis. Will obtain GI panel. Urine shows leukocyte esterase, however patient is not symptomatic. Was unable to provide a stool sample. Patient had also started taking Imodium last night, which is likely slowing down the diarrhea. Recommend that patient continue good hydration, take Levsin for abdominal cramping, Imodium. ED return precautions discussed with patient. Patient verbalized understanding. Medical records reviewed: Yes <Josue Lee MD - Last Filed: 07/19/24 08:26> Lab Data Labs: Lab Results 07/16/24 Range/Units 14:10 Urine RBC 1-5/hpf (0-5/HPF) Urine WBC 1-5/hpf (0-5/HPF) Ur Squamous Epith Cells 0-1 /hpf (0-5/HPF) Urine Bacteria None seen (None) Urine Mucus 1+ H (Negative) Ur Culture Indicated? Cult not indicated Vol Urine Centrifuged 10ml (spun) Point of Care Testing Test Results Negative Urine Dip Bedside Urine Glucose Negative Bedside Urine Bilirubin - Negative Bedside Urine Ketone ++ 40 Urine Specific [place] 1.025 Bedside Urine Occult Blood + Bedside Urine pH 6.0 Bedside Urine Protein + 30 Bedside Urine Urobilinogen - Negative Bedside Urine Nitrite - Negative Bedside Urine Leukocytes +/- 15 Esterase Discharge Plan Departure Patient Disposition: Home Clinical Impression: Gastroenteritis Instructions: DI for Viral Gastroenteritis -- Adult Activity Restrictions/Additional Instructions: You were evaluated in the ED today for nausea, vomiting, diarrhea. Your symptoms are most likely due to food poisoning or gastroenteritis. You are being prescribed Levsin for the abdominal cramping. You may take Imodium which is [id number] to slow down the diarrhea. Please continue to drink plenty of water to stay hydrated. Return to the ED if your symptoms worsen. Prescriptions: New hyoscyamine sulfate [Oscimin] 0.125 mg tablet 0.25 mg PO TID-QID PRN (Reason: dyspepsia) 5 Days Qty: 20 0RF No Action Hair, Skin and Nails (biotin) 10,000 mcg tablet,chewable PO melatonin PO ascorbic acid (vitamin C) PO cholecalciferol (vitamin D3) PO ashwagandha extract PO multivitamin with iron PO Mirena 21 mcg/24 hr (8 yrs) 52 mg intrauterine device intrauterine lorazepam 0.5 mg tablet 0.25 - 0.5 mg PO BID PRN (Reason: anxiety) Qty: 30 0RF ondansetron 4 mg tablet,disintegrating 4 mg PO DAILY 30 Days Qty: 20 3RF Referrals: Marco A Downs DO [Primary Care Provider] - Stand Alone Forms: Patient Portal/API/Survey ED Sign-out <Josue Lee MD - Last Filed: 07/19/24 08:26> Cosign ED Attending Cosignature Attestation: I was immediately available in the department for consultation. ?This documentation has been reviewed and I agree with assessment and plan. Supervised by Josue Lee MD
[2024-07-16 16:22] VITALS: BP 118/76; PULSE 68; RESP 16; O2SAT 99
== END 2024-07-16 16:23 | disposition home or self-care (01) ==
PROVIDERS: Emergency Provider Student in an Organized Health Care Education/Training Program; PCP Family Medicine
DX: K52.9 Noninfective gastroenteritis and colitis, unspecified (principal)
CPT/HCPCS: 81003; 81015; 81025; 99282

== ENCOUNTER → 2024-09-01 13:48 | Outpatient (CLI) | payer OTHER, SELFPAY ==
--- NOTE | 2024-09-01 13:51 | DI.CT.S_ITS ---
PROCEDURE: CT ANGIO NECK INDICATIONS: neck pain, hx of IJ clot 2021 TECHNIQUE: After the administration of intravenous contrast, 1.5 mm axial sections acquired from the aortic arch to the [place]. Maximum intensity projection (MIP) reformats were then performed. COMPARISON: None. FINDINGS: Image quality: Diagnostic. Carotid system: The great vessels demonstrate a conventional anatomy as they arise from the aortic arch. The origins of the common carotid arteries appear patent. The common carotid arteries demonstrate normal calibers and courses. The bifurcation regions appear normal bilaterally. The internal carotid arteries demonstrate normal caliber and course. Posterior circulation: The origins of the vertebral arteries appear patent. The more superior portions of the vertebral arteries demonstrate normal course and caliber. They join to form a normal appearing basilar artery. Venous structures in the neck: There is a inferior aspect right internal jugular vein metallic stent. There is patency of the right internal jugular vein with mild narrowing at the proximal aspect of the stented portion resulted in perhaps a 35% luminal narrowing. Reference coronal image 132 of series 10 and axial image 131 of series 4. A left arm vein was injected for the study. 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 There is extensive collateral flow present Soft tissues: Visualized neck soft tissues demonstrate no suspicious abnormalities. The thyroid gland demonstrates no significant abnormality. Bones: No suspicious bony lesions. Visualized cervical spine appears normally aligned. IMPRESSION: 1. Patent carotids. Unremarkable CT angiogram of the neck. 2. 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 3. Inferior aspect right internal jugular vein stent. The right internal jugular vein is patent with focal narrowing at the proximal aspect of the stent likely from minimal hyperplasia narrowing the lumen perhaps 35%. Any quantitative stenosis measurements were performed using the NASCET criteria. Dictated by: Remington Louise M.D. on 09/01/2024 at 14:39 Approved by: Remington Louise M.D. on 09/01/2024 at 14:45
== END ==
LOC: CT 13:50
PROVIDERS: PCP Family Medicine; Referring Provider Family Medicine; Visit Provider Family Medicine
DX: C85.90 Non-Hodgkin lymphoma, unspecified, unspecified site (principal); M54.2 Cervicalgia; Z86.718 Personal history of other venous thrombosis and embolism; Z95.828 Presence of other vascular implants and grafts
CPT/HCPCS: 70498; Q9967

== ENCOUNTER → 2024-12-18 08:23 | Outpatient (CLI) | payer OTHER, SELFPAY ==
[2024-12-19 13:12] LABS: Candida species Negative (Negative); Gardnerella vaginalis Negative (Negative); Trichomoas vaginalis Negative (Negative)
== END ==
LOC: LAB 08:25
PROVIDERS: PCP Family Medicine; Visit Provider Obstetrics & Gynecology
DX: Z11.3 Encounter for screening for infections with a predominantly sexual mode of transmission (principal)
CPT/HCPCS: 87480; 87510; 87660